=== PATIENT | female | born 1995 | race African-American/Black ===

== ENCOUNTER 2021-03-30 14:21 | Emergency (ER) | payer MEDICAID ==
[~2021-03-30] VITALS: Ht 175.3 cm; Wt 121.1 kg
[2021-03-30 14:26] VITALS: BP 144/80
[2021-03-30] MEDS ORDERED: NITR100C7 PO (14:52)
[2021-03-30 15:00] VITALS: BP 144/80
== END 2021-03-30 15:01 | disposition home or self-care (01) ==
LOC: MED 14:21
DX: O02.1 Missed abortion (principal); O23.40 Unspecified infection of urinary tract in pregnancy, unspecified trimester; F17.200 Nicotine dependence, unspecified, uncomplicated; F12.90 Cannabis use, unspecified, uncomplicated; Z79.899 Other long term (current) drug therapy
CPT/HCPCS: 81002; 81025; 99282

== ENCOUNTER 2021-04-11 10:37 | Emergency (ER) | payer MEDICAID ==
[~2021-04-11] VITALS: Ht 175.3 cm; Wt 121.1 kg
[~2021-04-11 10:37] MED LIST: NITR100C7 PO
--- NOTE | 2021-04-11 10:43 | NUR ---
PT ambulated to bed 04.
[2021-04-11 10:50] VITALS: BP 142/77
--- NOTE | 2021-04-11 10:56 | NUR ---
26 Y/O F BIB SELF FROM HOME, C/O ABD CRAMPING LAST NIGHT AND EMESIS EPISODE WITH DARK RED BLOOD IN THE MORNING. PT ALSO HAVING DIARRHEA, LAST BM 04/11/21. DENIES BURNING OR DIFFICULTY URINATING. PT STATES SHE IS 2-3 MONTHS , WAITING ON REFERRAL TO SEE OB . DENIES PAIN AT THIS TIME. SKIN IS PINK/WARM/DRY; AAOX4 WITH EVEN AND STEADY GAIT; LUNGS CLEAR BL; HR EVEN AND REGULAR; PT DENIES ANY FEVER, CP, SOB, OR COUGH AT THIS TIME; PATIENT STATES PAIN OF 0/10 AT THIS TIME, DESCRIBES MORE OF A "CRAMPING" SENSATION; VSS; PATIENT POSITIONED FOR COMFORT; HOB ELEVATED; BEDRAILS UP X2; BED DOWN. ER MD MADE AWARE OF PT STATUS. PMH: DENIES NKA
--- NOTE | 2021-04-11 11:36 | NUR ---
ULTRASOUND AT BED SIDE FOR ERMD.
[2021-04-11] MEDS ORDERED: ONDANSETRON 4 MG ODT PO ONE (11:40)
[2021-04-11 11:54] LABS: BASOPHILS # (AUTO) 0.1 K/uL (0.00-0.22); BASOPHILS % (AUTO) 0.6 % (0.0-2.0); EOSINOPHILS # (AUTO) 0.2 K/uL (0-0.4); EOSINOPHILS % (AUTO) 2.2 % (0.0-4.0); HEMOGLOBIN 11.6 g/dL (12.0-16.0); LYMPHOCYTES # (AUTO) 2.4 K/uL (2.5-16.5); LYMPHOCYTES % (AUTO) 26.5 % (20.5-51.1); MEAN CORPUSCULAR HEMOGLOBIN 26 pg (27-31); MEAN CORPUSCULAR HGB CONC 34 g/dL (33-37); MEAN CORPUSCULAR VOLUME 76.8 fL (80-94); MONOCYTES # (AUTO) 0.7 K/uL (0.8-1.0); MONOCYTES % (AUTO) 7.8 % (1.7-9.3); NEUTROPHILS # (AUTO) 5.6 K/uL (1.8-7.7); NEUTROPHILS % (AUTO) 62.9 % (42.2-75.2); PLATELET COUNT (AUTO) 235 K/uL (140-450); RED BLOOD CELL COUNT(AUTO) 4.43 MIL/uL (4.20-5.40); RED CELL DISTRIBUTION WIDTH 16.8 % (11.6-13.7); WHITE BLOOD COUNT (AUTO) 8.9 K/uL (4.8-10.8)
[2021-04-11 12:11] LABS: ALBUMIN 3.3 g/dL (3.4-5.0); ANION GAP 11.9 (8-16); CARBON DIOXIDE 24.9 mmol/L (21-32); CREATININE 0.7 mg/dL (0.6-1.3); POTASSIUM 3.8 mmol/L (3.5-5.1); TOTAL BILIRUBIN 0.4 mg/dL (0.0-1.0)
[2021-04-11] MEDS ORDERED: DOXY1TCP PO (12:48)
[2021-04-11 13:06] VITALS: BP 142/77
--- NOTE | 2021-04-11 13:07 | NUR ---
Patient discharged with v/s stable. Written and verbal after care instructions given and explained. Patient alert, oriented and verbalized understanding of instructions. Ambulatory with steady gait. All questions addressed prior to discharge. ID band removed. Patient advised to follow up with PMD. Rx of DOXYLAMINE/PYRIDOXINE HCL given. Patient educated on indication of medication including possible reaction and side effects. Opportunity to ask questions provided and answered.
== END 2021-04-11 13:07 | disposition home or self-care (01) ==
LOC: MED 10:37
DX: O21.9 Vomiting of pregnancy, unspecified (principal); Z3A.01 Less than 8 weeks gestation of pregnancy
CPT/HCPCS: 36415; 80053; 81002; 81025; 83690; 85025; 99284; Q0162

== ENCOUNTER 2021-06-14 13:27 | Emergency (ER) | payer MEDICAID ==
[~2021-06-14] VITALS: Ht 175.3 cm; Wt 120.7 kg
[~2021-06-14 13:27] MED LIST changes: +DOXY1TCP PO
[2021-06-14 13:37] VITALS: BP 127/80
[2021-06-14 15:52] VITALS: BP 117/78
--- NOTE | 2021-06-14 15:52 | NUR ---
NO NURSING INTERVENTIONS DONE
--- NOTE | 2021-06-14 15:53 | NUR ---
Patient discharged with v/s stable. Written and verbal after care instructions given and explained. Patient verbalized understanding. Ambulatory with steady gait. All questions addressed prior to discharge. Advised to follow up with PMD.
== END 2021-06-14 15:53 | disposition home or self-care (01) ==
LOC: MED 13:27
DX: O26.892 Other specified pregnancy related conditions, second trimester (principal); Z20.822 Contact with and (suspected) exposure to COVID-19; J02.9 Acute pharyngitis, unspecified; G40.909 Epilepsy, unspecified, not intractable, without status epilepticus; Z3A.16 16 weeks gestation of pregnancy; Z79.899 Other long term (current) drug therapy
CPT/HCPCS: 87081; 99283

== ENCOUNTER 2021-08-06 20:09 | Observation (INO) | payer MEDICAID ==
[~2021-08-06] VITALS: Ht 175.3 cm; Wt 127.0 kg
[2021-08-06] MEDS ORDERED: PREN-556 PO (21:20)
[2021-08-06] MEDS ORDERED: PNV91TAB8 PO (21:23)
[2021-08-06] MEDS ORDERED: CALC-577 PO (21:23)
[2021-08-06] MEDS ORDERED: FERR-212 PO (21:23)
== END 2021-08-07 11:35 | disposition home or self-care (01) ==
LOC: MLD 20:09
PROVIDERS: ADMIT Obstetrics & Gynecology; ATTEND Obstetrics & Gynecology
DX: O36.8320 Maternal care for abnormalities of the fetal heart rate or rhythm, second trimester, not applicable or unspecified (principal); Z3A.24 24 weeks gestation of pregnancy
CPT/HCPCS: 59025; 76805; G0378; Q0092

== ENCOUNTER 2022-05-17 03:12 | Emergency (ER) | payer MEDICAID ==
[~2022-05-17] VITALS: Ht 175.3 cm; Wt 108.9 kg
[~2022-05-17 03:12] MED LIST changes: +CALC-577 PO; -DOXY1TCP PO; +FERR-212 PO; -NITR100C7 PO; +PNV91TAB8 PO; +PREN-556 PO
[2022-05-17 03:35] VITALS: BP 142/73
--- NOTE | 2022-05-17 03:41 | NUR ---
TO LOBBY FOLLOWING TRIAGE
[2022-05-17] MEDS ORDERED: BISMUTH SUBSALICYLATE 15 ML UDBTL PO PRN (04:15)
[2022-05-17] MEDS ORDERED: ACETAMINOPHEN EXTRA STRENGTH 500 MG TAB PO ONE (04:15)
[2022-05-17 06:18] LABS: BASOPHILS # (AUTO) 0.1 K/uL (0.00-0.22); BASOPHILS % (AUTO) 0.8 % (0.0-2.0); EOSINOPHILS # (AUTO) 0.2 K/uL (0-0.4); EOSINOPHILS % (AUTO) 1.8 % (0.0-4.0); HEMATOCRIT 32.5 % (36-48); HEMOGLOBIN 10.9 g/dL (12.0-16.0); LYMPHOCYTES # (AUTO) 3.3 K/uL (2.5-16.5); MEAN CORPUSCULAR HEMOGLOBIN 25 pg (27-31); MEAN CORPUSCULAR HGB CONC 34 g/dL (33-37); MEAN CORPUSCULAR VOLUME 74.5 fL (80-94); MONOCYTES # (AUTO) 0.8 K/uL (0.8-1.0); NEUTROPHILS # (AUTO) 7.3 K/uL (1.8-7.7); NEUTROPHILS % (AUTO) 62.4 % (42.2-75.2); PLATELET COUNT (AUTO) 248 K/uL (140-450); RED BLOOD CELL COUNT(AUTO) 4.37 MIL/uL (4.20-5.40); RED CELL DISTRIBUTION WIDTH 18.5 % (11.6-13.7); WHITE BLOOD COUNT (AUTO) 11.7 K/uL (4.8-10.8)
[2022-05-17 07:17] LABS: ALBUMIN 3.5 g/dL (3.4-5.0); ANION GAP 12.1 (8-16); CARBON DIOXIDE 25.6 mmol/L (21-32); CREATININE 0.8 mg/dL (0.6-1.3); POTASSIUM 3.7 mmol/L (3.5-5.1); TOTAL BILIRUBIN 0.3 mg/dL (0.0-1.0)
--- NOTE | 2022-05-17 08:04 | NUR ---
PT DISCHARGED BY DR PIMENTEL. Patient discharged with v/s stable. Written and verbal after care instructions ABOUT CARE given and explained. Patient verbalized understanding. Ambulatory with steady gait. All questions addressed prior to discharge. Advised to follow up with PMD.
== END 2022-05-17 08:04 | disposition home or self-care (01) ==
LOC: MED 03:12
DX: O26.891 Other specified pregnancy related conditions, first trimester (principal); R10.9 Unspecified abdominal pain; G40.909 Epilepsy, unspecified, not intractable, without status epilepticus; Z3A.01 Less than 8 weeks gestation of pregnancy
CPT/HCPCS: 36415; 76801; 76830; 80053; 81002; 81025; 84702; 85025; 85610; 86900; 86901; 99284; Q0092